=== PATIENT | male | born 1945 | race Caucasian/White ===

== ENCOUNTER 2019-10-22 08:58 | Day surgery (SDC) | payer MEDICARE ==
[~2019-10-22] VITALS: Ht 177.8 cm; Wt 95.5 kg
[2019-10-22] VITALS (8 sets, daily range): BP systolic 104–118; BP diastolic 68–74
[2019-10-22] MEDS ORDERED: MIDAZolam 5mg/ml 2ml vial IV ONE (09:30)
[2019-10-22] MEDS ORDERED: fentaNYL/PF 50MCG/1 ML 2ML syringe IV ONE (09:30)
[2019-10-22] MEDS ORDERED: atropine 0.1mg/ml 10ml syringe IV ONE (09:30)
[2019-10-22 09:44] LABS: BASOPHILS # (AUTO) 0.1 X10'3 (0-0.2); BASOPHILS % (AUTO) 1.4 % (0-1); EOSINOPHILS # (AUTO) 0.1 X10'3 (0-0.9); EOSINOPHILS % (AUTO) 1.9 % (0-6); HEMOGLOBIN 15.6 g/dl (14.0-17.9); LYMPHOCYTES # (AUTO) 1.9 X10'3 (1.1-4.8); LYMPHOCYTES % (AUTO) 29.5 % (21-51); MEAN CORPUSCULAR HEMOGLOBIN 29.9 PG (27.0-31.0); MEAN CORPUSCULAR HGB CONC 33.2 g/dL (33.0-36.5); MEAN CORPUSCULAR VOLUME 89.9 FL (78-98); MEAN PLATELET VOLUME 7.8 FL (7.4-10.4); MONOCYTES # (AUTO) 0.6 X10'3 (0-0.9); NEUTROPHILS # (AUTO) 3.8 X10'3 (1.8-7.7); NEUTROPHILS % (AUTO) 58.2 % (42-75); PLATELET COUNT 252 X10'3 (140-440); RED BLOOD COUNT 5.22 X10'6 (4.70-6.10); WHITE BLOOD COUNT 6.5 X10'3 (4.5-11.0)
[2019-10-22 09:50] LABS: ANION GAP 5 (8-16); BLOOD UREA NITROGEN 19 MG/DL (7-18); BUN/CREATININE RATIO 16.7 (5.4-32.0); CALCIUM 8.6 MG/DL (8.5-10.1); CHLORIDE 106 MMOL/L (99-107); CREATININE 1.14 MG/DL (0.60-1.10); GLUCOSE 97 MG/DL (70-104); MAGNESIUM 2.1 MG/DL (1.5-2.4); SODIUM 140 MMOL/L (135-145); TOTAL CARBON DIOXIDE 29.2 MMOL/L (24-32); eGFR 62 ML/MIN
[2019-10-22] MEDS ORDERED: EVOL140P3 (09:54)
[2019-10-22] MEDS ORDERED: FLO0.4C PO (09:54)
[2019-10-22] MEDS ORDERED: FURO-150 PO (09:54)
[2019-10-22] MEDS ORDERED: CLOP75TA33 PO (09:54)
[2019-10-22] MEDS ORDERED: POTA10TA10 PO (09:54)
[2019-10-22] MEDS ORDERED: BIMA2.5D OP (09:54)
[2019-10-22] MEDS ORDERED: RIVA20TA PO (09:54)
== END 2019-10-22 11:55 | disposition home or self-care (01) ==
LOC: SSTAY O 08:58
PROVIDERS: ATTEND Internal Medicine Cardiovascular Disease
DX: I48.0 Paroxysmal atrial fibrillation (principal); I25.118 Atherosclerotic heart disease of native coronary artery with other forms of angina pectoris; I11.0 Hypertensive heart disease with heart failure; I50.9 Heart failure, unspecified; E78.5 Hyperlipidemia, unspecified; H40.9 Unspecified glaucoma; Z79.899 Other long term (current) drug therapy; Z98.890 Other specified postprocedural states; Z79.01 Long term (current) use of anticoagulants; Z95.5 Presence of coronary angioplasty implant and graft; Z88.8 Allergy status to other drugs, medicaments and biological substances
CPT/HCPCS: 36415; 80048; 83735; 85025; 85610; 92960; 93005; J0461; J2250; J3010

== ENCOUNTER 2020-08-25 09:25 | Day surgery (SDC) | payer MEDICARE ==
[2020-08-25] VITALS (12 sets, daily range): BP systolic 110–173; BP diastolic 65–100
[~2020-08-25] VITALS: Ht 180.3 cm; Wt 96.9 kg
[~2020-08-25 09:25] MED LIST: BIMA2.5D OP; CLOP75TA33 PO; EVOL140P3; FLO0.4C PO; FURO-150 PO; POTA10TA10 PO; RIVA20TA PO
[2020-08-25] MEDS ORDERED: normal saline 1000ml 1,000 ML IV SCH (09:50)
[2020-08-25] MEDS ORDERED: MIDAZolam 1mg/ml 10ml vial IV ONE (09:50)
[2020-08-25] MEDS ORDERED: fentaNYL/PF 50MCG/1 ML 2ML syringe IV ONE (09:50)
[2020-08-25] MEDS ORDERED: DOFE250C (10:03)
[2020-08-25] MEDS ORDERED: FINA5TAB11 PO (10:03)
[2020-08-25 10:15] LABS: BASOPHILS % (AUTO) 0.7 % (0-1); EOSINOPHILS # (AUTO) 0.1 X10'3 (0-0.9); EOSINOPHILS % (AUTO) 2.7 % (0-6); HEMATOCRIT 44.8 % (42.0-52.0); HEMOGLOBIN 15.3 g/dl (14.0-17.9); LYMPHOCYTES # (AUTO) 1.6 X10'3 (1.1-4.8); LYMPHOCYTES % (AUTO) 30.5 % (21-51); MEAN CORPUSCULAR HEMOGLOBIN 30.9 PG (27.0-31.0); MEAN CORPUSCULAR HGB CONC 34.2 g/dL (33.0-36.5); MEAN CORPUSCULAR VOLUME 90.5 FL (78-98); MEAN PLATELET VOLUME 7.6 FL (7.4-10.4); MONOCYTES # (AUTO) 0.5 X10'3 (0-0.9); MONOCYTES % (AUTO) 9.7 % (2-12); NEUTROPHILS % (AUTO) 56.4 % (42-75); PLATELET COUNT 243 X10'3 (140-440); RED BLOOD COUNT 4.95 X10'6 (4.70-6.10); RED CELL DISTRIBUTION WIDTH 13.3 % (11.5-14.5); WHITE BLOOD COUNT 5.3 X10'3 (4.5-11.0)
[2020-08-25 10:25] LABS: ALBUMIN 3.8 G/DL (3.4-5.0); ANION GAP 7 (8-16); BLOOD UREA NITROGEN 15 MG/DL (7-18); BUN/CREATININE RATIO 14.4 (5.4-32.0); CALCIUM 9.2 MG/DL (8.5-10.1); CHLORIDE 107 MMOL/L (99-107); CREATININE 1.04 MG/DL (0.60-1.10); GLUCOSE 94 MG/DL (70-104); MAGNESIUM 2.3 MG/DL (1.5-2.4); POTASSIUM 4.2 MMOL/L (3.5-5.1); SODIUM 142 MMOL/L (135-145); TOTAL CARBON DIOXIDE 27.6 MMOL/L (24-32); eGFR 69 ML/MIN
== END 2020-08-25 12:50 | disposition home or self-care (01) ==
LOC: SSTAY O 09:25
PROVIDERS: ATTEND Internal Medicine Cardiovascular Disease
DX: I48.0 Paroxysmal atrial fibrillation (principal); E78.5 Hyperlipidemia, unspecified; I25.10 Atherosclerotic heart disease of native coronary artery without angina pectoris; I25.2 Old myocardial infarction; I11.0 Hypertensive heart disease with heart failure; I50.9 Heart failure, unspecified; H40.9 Unspecified glaucoma; Z95.5 Presence of coronary angioplasty implant and graft; Z98.890 Other specified postprocedural states; Z72.89 Other problems related to lifestyle; Z88.8 Allergy status to other drugs, medicaments and biological substances; Z82.49 Family history of ischemic heart disease and other diseases of the circulatory system
CPT/HCPCS: 36415; 80048; 83735; 85025; 85610; 92960; 93005; 94799; J2250; J3010; J7030

== ENCOUNTER 2020-12-18 10:33 | Day surgery (SDC) | payer MEDICARE ==
[~2020-12-18] VITALS: Ht 188 cm; Wt 97.2 kg
[2020-12-18] VITALS (10 sets, daily range): BP systolic 117–161; BP diastolic 65–101
[~2020-12-18 10:33] MED LIST changes: -CLOP75TA33 PO; +DOFE250C; +FINA5TAB11 PO
[2020-12-18] MEDS ORDERED: fentaNYL/PF 50MCG/1 ML 2ML syringe IV ONE (11:05)
[2020-12-18] MEDS ORDERED: MIDAZolam 1mg/ml 10ml vial IV ONE (11:05)
[2020-12-18] MEDS ORDERED: normal saline 1000ml 1,000 ML IV SCH (11:05)
[2020-12-18] MEDS ORDERED: TIMO2.5D4 EACHEYE (11:13)
[2020-12-18] MEDS ORDERED: MULT-1085 PO (11:13)
[2020-12-18] MEDS ORDERED: LANS30CA37 PO (11:13)
[2020-12-18 11:31] LABS: BASOPHILS # (AUTO) 0.1 X10'3 (0-0.2); EOSINOPHILS # (AUTO) 0.1 X10'3 (0-0.9); EOSINOPHILS % (AUTO) 2.8 % (0-6); HEMATOCRIT 45.9 % (42.0-52.0); HEMOGLOBIN 15.2 g/dl (14.0-17.9); LYMPHOCYTES # (AUTO) 1.5 X10'3 (1.1-4.8); LYMPHOCYTES % (AUTO) 27.9 % (21-51); MEAN CORPUSCULAR HEMOGLOBIN 29.4 PG (27.0-31.0); MEAN CORPUSCULAR HGB CONC 33.1 g/dL (33.0-36.5); MEAN CORPUSCULAR VOLUME 88.9 FL (78-98); MEAN PLATELET VOLUME 7.9 FL (7.4-10.4); MONOCYTES # (AUTO) 0.5 X10'3 (0-0.9); MONOCYTES % (AUTO) 8.6 % (2-12); NEUTROPHILS # (AUTO) 3.2 X10'3 (1.8-7.7); NEUTROPHILS % (AUTO) 59.7 % (42-75); PLATELET COUNT 249 X10'3 (140-440); RED BLOOD COUNT 5.16 X10'6 (4.70-6.10); RED CELL DISTRIBUTION WIDTH 13.8 % (11.5-14.5); WHITE BLOOD COUNT 5.3 X10'3 (4.5-11.0)
[2020-12-18 11:41] LABS: ANION GAP 9 (8-16); BLOOD UREA NITROGEN 15 MG/DL (7-18); BUN/CREATININE RATIO 15.6 (5.4-32.0); CALCIUM 9.3 MG/DL (8.5-10.1); CHLORIDE 104 MMOL/L (99-107); CREATININE 0.96 MG/DL (0.60-1.10); GLUCOSE 94 MG/DL (70-104); MAGNESIUM 2.2 MG/DL (1.5-2.4); SODIUM 140 MMOL/L (135-145); TOTAL CARBON DIOXIDE 27.4 MMOL/L (24-32); eGFR 76 ML/MIN
== END 2020-12-18 15:00 | disposition home or self-care (01) ==
LOC: SSTAY O 10:33
PROVIDERS: ATTEND Internal Medicine Cardiovascular Disease
DX: I48.0 Paroxysmal atrial fibrillation (principal); I48.4 Atypical atrial flutter; I11.0 Hypertensive heart disease with heart failure; I50.9 Heart failure, unspecified; I25.118 Atherosclerotic heart disease of native coronary artery with other forms of angina pectoris; I25.2 Old myocardial infarction; E78.5 Hyperlipidemia, unspecified; H40.9 Unspecified glaucoma; Z95.5 Presence of coronary angioplasty implant and graft; Z79.899 Other long term (current) drug therapy; Z88.8 Allergy status to other drugs, medicaments and biological substances; Z88.5 Allergy status to narcotic agent
CPT/HCPCS: 36415; 80048; 83735; 85025; 85610; 92960; 93005; J2250; J3010; J7030

== ENCOUNTER 2021-06-18 06:41 | Day surgery (SDC) | payer MEDICARE ==
[2021-06-18] VITALS (19 sets, daily range): BP systolic 98–159; BP diastolic 61–108
[~2021-06-18] VITALS: Ht 180.3 cm; Wt 98.1 kg
[~2021-06-18 06:41] MED LIST changes: -FURO-150 PO; +LANS30CA37 PO; +MULT-1085 PO; -POTA10TA10 PO; +TIMO2.5D4 EACHEYE
[2021-06-18] MEDS ORDERED: fentaNYL/PF 50MCG/1 ML 2ML syringe IV ONE (07:10)
[2021-06-18] MEDS ORDERED: normal saline 1000ml 1,000 ML IV SCH (07:10)
[2021-06-18] MEDS ORDERED: MIDAZolam 1mg/ml 10ml vial IV ONE (07:10)
[2021-06-18 07:57] LABS: EOSINOPHILS # (AUTO) 0.1 X10'3 (0-0.9); EOSINOPHILS % (AUTO) 2.4 % (0-6); HEMATOCRIT 43.9 % (42.0-52.0); HEMOGLOBIN 14.7 g/dl (14.0-17.9); LYMPHOCYTES # (AUTO) 1.2 X10'3 (1.1-4.8); LYMPHOCYTES % (AUTO) 25.8 % (21-51); MEAN CORPUSCULAR HEMOGLOBIN 30.2 PG (27.0-31.0); MEAN CORPUSCULAR HGB CONC 33.4 g/dL (33.0-36.5); MEAN CORPUSCULAR VOLUME 90.5 FL (78-98); MEAN PLATELET VOLUME 8.5 FL (7.4-10.4); MONOCYTES # (AUTO) 0.5 X10'3 (0-0.9); MONOCYTES % (AUTO) 10.1 % (2-12); NEUTROPHILS # (AUTO) 2.9 X10'3 (1.8-7.7); NEUTROPHILS % (AUTO) 60.7 % (42-75); PLATELET COUNT 208 X10'3 (140-440); RED BLOOD COUNT 4.86 X10'6 (4.70-6.10); RED CELL DISTRIBUTION WIDTH 13.9 % (11.5-14.5); WHITE BLOOD COUNT 4.8 X10'3 (4.5-11.0)
[2021-06-18 08:11] LABS: ALBUMIN 3.6 G/DL (3.4-5.0); ANION GAP 6 (8-16); BLOOD UREA NITROGEN 15 MG/DL (7-18); CALCIUM 8.8 MG/DL (8.5-10.1); CHLORIDE 106 MMOL/L (99-107); GLUCOSE 98 MG/DL (70-104); MAGNESIUM 2.4 MG/DL (1.5-2.4); POTASSIUM 3.8 MMOL/L (3.5-5.1); SODIUM 139 MMOL/L (135-145); TOTAL CARBON DIOXIDE 26.8 MMOL/L (24-32); eGFR 72 ML/MIN
[2021-06-18] MEDS ORDERED: flecainide 50mg tablet PO ONE (09:20)
== END 2021-06-18 11:30 | disposition home or self-care (01) ==
LOC: SSTAY O 06:41
PROVIDERS: ATTEND Internal Medicine Cardiovascular Disease
DX: I48.4 Atypical atrial flutter (principal); I48.0 Paroxysmal atrial fibrillation; I11.0 Hypertensive heart disease with heart failure; I50.9 Heart failure, unspecified; I25.118 Atherosclerotic heart disease of native coronary artery with other forms of angina pectoris; E78.5 Hyperlipidemia, unspecified; H40.9 Unspecified glaucoma; Z98.890 Other specified postprocedural states; Z72.89 Other problems related to lifestyle; Z88.8 Allergy status to other drugs, medicaments and biological substances; Z79.899 Other long term (current) drug therapy
CPT/HCPCS: 36415; 80048; 83735; 85025; 85610; 92960; 93005; 94799; J2250; J3010; J7030

== ENCOUNTER 2022-01-25 06:36 | Day surgery (SDC) | payer MEDICARE ==
[2022-01-25] VITALS (7 sets, daily range): BP systolic 107–167; BP diastolic 61–102
[~2022-01-25] VITALS: Ht 180.3 cm; Wt 99.3 kg
[~2022-01-25 06:36] MED LIST changes: -DOFE250C; -FINA5TAB11 PO; -LANS30CA37 PO; -MULT-1085 PO
[2022-01-25] MEDS ORDERED: normal saline 1000ml 1,000 ML IV SCH (07:05)
[2022-01-25] MEDS ORDERED: fentaNYL/PF 50MCG/1 ML 2ML syringe IV ONE (07:05)
[2022-01-25] MEDS ORDERED: MIDAZolam 1mg/ml 10ml vial IV ONE (07:05)
[2022-01-25] MEDS ORDERED: FLEC50TA PO (07:09)
[2022-01-25] MEDS ORDERED: FINA1TAB17 PO (07:09)
[2022-01-25] MEDS ORDERED: APIX5TAB3 PO (07:09)
[2022-01-25 07:34] LABS: EOSINOPHILS # (AUTO) 0.1 X10'3 (0-0.9); EOSINOPHILS % (AUTO) 2.4 % (0-6); HEMATOCRIT 41.9 % (42.0-52.0); HEMOGLOBIN 14.5 g/dl (14.0-17.9); LYMPHOCYTES # (AUTO) 1.3 X10'3 (1.1-4.8); LYMPHOCYTES % (AUTO) 26.9 % (21-51); MEAN CORPUSCULAR HEMOGLOBIN 30.7 PG (27.0-31.0); MEAN CORPUSCULAR HGB CONC 34.6 g/dL (33.0-36.5); MEAN CORPUSCULAR VOLUME 88.7 FL (78-98); MONOCYTES # (AUTO) 0.5 X10'3 (0-0.9); MONOCYTES % (AUTO) 9.5 % (2-12); NEUTROPHILS # (AUTO) 2.9 X10'3 (1.8-7.7); NEUTROPHILS % (AUTO) 60.2 % (42-75); PLATELET COUNT 209 X10'3 (140-440); RED BLOOD COUNT 4.73 X10'6 (4.70-6.10); RED CELL DISTRIBUTION WIDTH 13.7 % (11.5-14.5); WHITE BLOOD COUNT 4.9 X10'3 (4.5-11.0)
[2022-01-25 07:41] LABS: ALBUMIN 3.7 G/DL (3.4-5.0); ANION GAP 8 (8-16); BLOOD UREA NITROGEN 17 MG/DL (7-18); BUN/CREATININE RATIO 16.5 (5.4-32.0); CALCIUM 8.6 MG/DL (8.5-10.1); CHLORIDE 105 MMOL/L (99-107); CREATININE 1.03 MG/DL (0.60-1.10); GLUCOSE 100 MG/DL (70-104); MAGNESIUM 2.1 MG/DL (1.5-2.4); SODIUM 140 MMOL/L (135-145); TOTAL CARBON DIOXIDE 26.9 MMOL/L (24-32); eGFR 70 ML/MIN
== END 2022-01-25 14:33 | disposition home or self-care (01) ==
LOC: SSTAY O 06:36
PROVIDERS: ATTEND Internal Medicine Cardiovascular Disease
DX: I48.0 Paroxysmal atrial fibrillation (principal); I48.4 Atypical atrial flutter; I25.118 Atherosclerotic heart disease of native coronary artery with other forms of angina pectoris; E78.5 Hyperlipidemia, unspecified; I10 Essential (primary) hypertension; H40.9 Unspecified glaucoma; I25.2 Old myocardial infarction; Z95.5 Presence of coronary angioplasty implant and graft; Z88.8 Allergy status to other drugs, medicaments and biological substances; Z79.899 Other long term (current) drug therapy; Z79.01 Long term (current) use of anticoagulants
CPT/HCPCS: 36415; 80048; 83735; 85025; 85610; 92960; 93005; J2250; J3010; J7030

== ENCOUNTER 2022-11-17 18:14 | Emergency (ER) | payer MEDICARE ==
[~2022-11-17] VITALS: Ht 177.8 cm; Wt 93.2 kg
[~2022-11-17 18:14] MED LIST changes: +APIX5TAB3 PO; +FINA1TAB17 PO; +FLEC50TA PO; -RIVA20TA PO
[2022-11-17 18:45] VITALS: BP 130/88
[2022-11-17] MEDS ORDERED: predniSONE 20 mg tablet PO ONE (20:05)
[2022-11-17] MEDS ORDERED: gabapentin 100mg capsule PO ONE (20:05)
[2022-11-17] MEDS ORDERED: PRED20TA PO (20:09)
[2022-11-17] MEDS ORDERED: GABA-530 PO (20:09)
== END 2022-11-17 20:32 | disposition home or self-care (01) ==
LOC: ER 18:16
DX: G62.9 Polyneuropathy, unspecified (principal); M79.604 Pain in right leg; M79.605 Pain in left leg; M79.602 Pain in left arm; B02.9 Zoster without complications; H54.3 Unqualified visual loss, both eyes; Z88.8 Allergy status to other drugs, medicaments and biological substances; Z88.1 Allergy status to other antibiotic agents; Z79.899 Other long term (current) drug therapy
CPT/HCPCS: 99283; J7512

== ENCOUNTER 2023-01-10 06:43 | Day surgery (SDC) | payer MEDICARE ==
[~2023-01-10] VITALS: Ht 177.8 cm; Wt 96.7 kg
[~2023-01-10 06:43] MED LIST changes: +GABA-530 PO
[2023-01-10] MEDS ORDERED: diphenhydrAMINE 25mg capsule PO PRN (07:05)
[2023-01-10 07:12] VITALS: BP 143/89
[2023-01-10 07:56] LABS: BASOPHILS % (AUTO) 1.1 % (0-1); EOSINOPHILS # (AUTO) 0.1 X10'3 (0-0.9); EOSINOPHILS % (AUTO) 3.5 % (0-6); HEMATOCRIT 47.8 % (42.0-52.0); HEMOGLOBIN 15.8 g/dl (14.0-17.9); LYMPHOCYTES % (AUTO) 23.7 % (21-51); MEAN CORPUSCULAR HGB CONC 32.9 g/dL (33.0-36.5); MEAN CORPUSCULAR VOLUME 91.2 FL (78-98); MEAN PLATELET VOLUME 8.2 FL (7.4-10.4); MONOCYTES # (AUTO) 0.4 X10'3 (0-0.9); MONOCYTES % (AUTO) 10.7 % (2-12); NEUTROPHILS # (AUTO) 2.5 X10'3 (1.8-7.7); PLATELET COUNT 217 X10'3 (140-440); RED BLOOD COUNT 5.25 X10'6 (4.70-6.10); WHITE BLOOD COUNT 4.1 X10'3 (4.5-11.0)
[2023-01-10 07:57] LABS: ALBUMIN 4.3 G/DL (3.4-5.0); ANION GAP 10 (8-16); BLOOD UREA NITROGEN 17 MG/DL (7-18); BUN/CREATININE RATIO 15.7 (10.0-20.0); CALCIUM 9.2 MG/DL (8.5-10.1); CHLORIDE 103 MMOL/L (99-107); CREATININE 1.08 MG/DL (0.60-1.10); GLUCOSE 99 MG/DL (70-104); MAGNESIUM 2.2 MG/DL (1.5-2.4); POTASSIUM 4.1 MMOL/L (3.5-5.1); SODIUM 141 MMOL/L (135-145); TOTAL CARBON DIOXIDE 27.8 MMOL/L (24-32); eGFR 66 ML/MIN
[2023-01-10] MEDS ORDERED: midazolam 1 mg/ML 2ml injection ONE ×2 (08:46→09:36)
[2023-01-10] MEDS ORDERED: verapamil 2.5 mg/ml inj IV ONE (08:46)
[2023-01-10] MEDS ORDERED: nitroGLYCERIN-Tridil 50MG/D5W 0 ML IV ONE (08:46)
[2023-01-10] MEDS ORDERED: fentaNYL/PF 50MCG/1 ML 2ML syringe ONE (08:46)
[2023-01-10] MEDS ORDERED: heparin 1,000unit/ml 10ml vial 10 ML ONE (08:47)
[2023-01-10] MEDS ORDERED: iohexol 350 MG/ML 50ML vial IV ONE (08:47)
[2023-01-10] MEDS ORDERED: iohexol 350MG/ML 100ml bottle IV ONE (08:47)
[2023-01-10] MEDS ORDERED: LIDOcaine 1% (10mg/ml) 2ml vial ONE (08:47)
[2023-01-10] MEDS ORDERED: LIDOcaine 1% 30ml preserv. free vial ONE (09:17)
[2023-01-10 10:31] VITALS: BP 133/79
[2023-01-10] MEDS ORDERED: HYDROcodone/acetaminophen 5mg/325mg tablet PO PRN (10:50)
[2023-01-10] MEDS ORDERED: normal saline 1000ml 1,000 ML IV SCH (10:50)
[2023-01-10] MEDS ORDERED: ondansetron/PF 4mg/2ml inj IV PRN (10:50)
[2023-01-10] MEDS ORDERED: proCHLORperazine 10 MG/2 ml inj IV PRN (10:50)
[2023-01-10] MEDS ORDERED: HYDROcodone/acetaminophen 10/325mg tab PO PRN (10:50)
== END 2023-01-10 13:30 | disposition home or self-care (01) ==
LOC: SSTAY O 06:43
PROVIDERS: ATTEND Internal Medicine Cardiovascular Disease
DX: R94.39 Abnormal result of other cardiovascular function study (principal); I25.118 Atherosclerotic heart disease of native coronary artery with other forms of angina pectoris; I48.0 Paroxysmal atrial fibrillation; I10 Essential (primary) hypertension; E78.5 Hyperlipidemia, unspecified; K21.9 Gastro-esophageal reflux disease without esophagitis; Z98.890 Other specified postprocedural states; Z79.899 Other long term (current) drug therapy; I27.20 Pulmonary hypertension, unspecified; Z88.8 Allergy status to other drugs, medicaments and biological substances
CPT/HCPCS: 36415; 80048; 83735; 85025; 85610; 93005; 93460; 99152; 99153; C1760; C1894; J1644; J2250; J3010; J3490; J7030; Q0163; Q9967; A6258; C1725; C1751

== ENCOUNTER 2023-10-10 06:19 | Day surgery (SDC) | payer MEDICARE ==
[~2023-10-10] VITALS: Ht 177.8 cm; Wt 93.2 kg
[~2023-10-10 06:19] MED LIST changes: -EVOL140P3; -FINA1TAB17 PO; -GABA-530 PO; +cefazolin 2gm/D5W 100mL 100 ML IV ONE; +vancomycin 1,500 MG in NS 300ml IV soln IV ONE
[2023-10-10] MEDS ORDERED: normal saline 1000ml 1,000 ML IV SCH (06:40)
[2023-10-10 06:43] VITALS: BP 143/82; PULSE 76; RESP 16; TEMP 97.7; O2SAT 96
[2023-10-10] MEDS ORDERED: BACI1CAP10 PO (06:57)
[2023-10-10 07:12] LABS: BASOPHILS # (AUTO) 0.1 X10'3 (0-0.2); BASOPHILS % (AUTO) 1.1 % (0-1); EOSINOPHILS # (AUTO) 0.1 X10'3 (0-0.9); EOSINOPHILS % (AUTO) 2.3 % (0-6); HEMATOCRIT 45.5 % (42.0-52.0); HEMOGLOBIN 15.1 g/dl (14.0-17.9); LYMPHOCYTES # (AUTO) 1.4 X10'3 (1.1-4.8); LYMPHOCYTES % (AUTO) 30.4 % (21-51); MEAN CORPUSCULAR HEMOGLOBIN 30.1 PG (27.0-31.0); MEAN CORPUSCULAR HGB CONC 33.2 g/dL (33.0-36.5); MEAN CORPUSCULAR VOLUME 90.8 FL (78-98); MEAN PLATELET VOLUME 8.5 FL (7.4-10.4); MONOCYTES # (AUTO) 0.4 X10'3 (0-0.9); MONOCYTES % (AUTO) 9.4 % (2-12); NEUTROPHILS # (AUTO) 2.7 X10'3 (1.8-7.7); NEUTROPHILS % (AUTO) 56.8 % (42-75); PLATELET COUNT 173 X10'3 (140-440); RED BLOOD COUNT 5.01 X10'6 (4.70-6.10); WHITE BLOOD COUNT 4.7 X10'3 (4.5-11.0)
[2023-10-10 07:27] LABS: PROTHROMBIN TIME 10.8 SECONDS (9.0-12.0)
[2023-10-10 07:30] VITALS: RESP 16; O2SAT 96
[2023-10-10 07:42] LABS: ALBUMIN 3.9 G/DL (3.4-5.0); ANION GAP 11 (8-16); BLOOD UREA NITROGEN 18 MG/DL (7-18); BUN/CREATININE RATIO 15.9 (10.0-20.0); CALCIUM 9.2 MG/DL (8.5-10.1); CHLORIDE 107 MMOL/L (99-107); CREATININE 1.13 MG/DL (0.60-1.10); GLUCOSE 97 MG/DL (70-104); MAGNESIUM 2.2 MG/DL (1.5-2.4); SODIUM 141 MMOL/L (135-145); TOTAL CARBON DIOXIDE 23.1 MMOL/L (24-32); eCRCL 54 ML/MIN; eGFR 62 ML/MIN
[2023-10-10] MEDS ORDERED: midazolam 1 mg/ML 2ml injection ONE ×3 (08:10→10:39)
[2023-10-10] MEDS ORDERED: vancomycin 1,000mg inj ONE (08:10)
[2023-10-10] MEDS ORDERED: LIDOcaine 1% W/epiNEPHrine 1:100,000 20ml vial ONE (08:10)
[2023-10-10] MEDS ORDERED: fentaNYL/PF 50MCG/1 ML 2ML syringe ONE ×2 (08:10→10:39)
[2023-10-10] MEDS ORDERED: iohexol 350 MG/ML 50ML vial IV ONE (08:13)
[2023-10-10] MEDS ORDERED: atropine 0.1mg/ml 10ml syringe ONE (09:55)
[2023-10-10 11:27] VITALS: BP 116/72; PULSE 60; RESP 16; O2SAT 94
[2023-10-10] MEDS ORDERED: flecainide 50mg tablet PO ONE (11:40)
[2023-10-10 11:57] VITALS: BP 126/82; PULSE 60; RESP 16; O2SAT 97
[2023-10-10 12:12] VITALS: BP 131/82; PULSE 58; RESP 16; O2SAT 96
[2023-10-10 12:27] VITALS: BP 109/70; PULSE 60; RESP 16; O2SAT 97
== END 2023-10-10 13:44 | disposition home or self-care (01) ==
LOC: SSTAY O 06:19
PROVIDERS: ATTEND Internal Medicine Cardiovascular Disease
DX: I49.5 Sick sinus syndrome (principal); I48.19 Other persistent atrial fibrillation; I42.8 Other cardiomyopathies; I25.118 Atherosclerotic heart disease of native coronary artery with other forms of angina pectoris; I48.4 Atypical atrial flutter; E78.5 Hyperlipidemia, unspecified; H40.9 Unspecified glaucoma; K21.9 Gastro-esophageal reflux disease without esophagitis; I11.0 Hypertensive heart disease with heart failure; I50.9 Heart failure, unspecified; I25.2 Old myocardial infarction; Z98.890 Other specified postprocedural states; Z88.8 Allergy status to other drugs, medicaments and biological substances; Z79.899 Other long term (current) drug therapy; Z82.49 Family history of ischemic heart disease and other diseases of the circulatory system
CPT/HCPCS: 33208; 36415; 71045; 80048; 83735; 85025; 85610; 92960; 93005; 99152; 99153; C1785; C1898; J2250; J3010; J3370; J3490; J7030; Q9967; A4565; A6258; J0461

== ENCOUNTER 2023-11-14 09:10 | Day surgery (SDC) | payer MEDICARE ==
[2023-11-14] VITALS (14 sets, daily range): BP systolic 88–148; BP diastolic 24–106; PULSE 65–90; RESP 13–20; TEMP 98.2; O2SAT 94–98
[~2023-11-14] VITALS: Ht 180.3 cm; Wt 96.3 kg
[~2023-11-14 09:10] MED LIST changes: +BACI1CAP10 PO; -FLEC50TA PO; -cefazolin 2gm/D5W 100mL 100 ML IV ONE; -vancomycin 1,500 MG in NS 300ml IV soln IV ONE
[2023-11-14] MEDS ORDERED: AMI200T PO (09:56)
[2023-11-14] MEDS ORDERED: ACET125T3 PO (09:56)
[2023-11-14] MEDS ORDERED: LATA2.5D14 (09:56)
[2023-11-14] MEDS ORDERED: MULT-1085 PO (09:56)
[2023-11-14 10:40] LABS: BASOPHILS % (AUTO) 0.9 % (0-1); EOSINOPHILS # (AUTO) 0.1 X10'3 (0-0.9); EOSINOPHILS % (AUTO) 2.5 % (0-6); LYMPHOCYTES # (AUTO) 1.2 X10'3 (1.1-4.8); LYMPHOCYTES % (AUTO) 24.5 % (21-51); MEAN CORPUSCULAR HEMOGLOBIN 29.7 PG (27.0-31.0); MEAN CORPUSCULAR HGB CONC 32.6 g/dL (33.0-36.5); MEAN CORPUSCULAR VOLUME 91.2 FL (78-98); MEAN PLATELET VOLUME 8.6 FL (7.4-10.4); MONOCYTES # (AUTO) 0.5 X10'3 (0-0.9); MONOCYTES % (AUTO) 10.1 % (2-12); NEUTROPHILS # (AUTO) 2.9 X10'3 (1.8-7.7); PLATELET COUNT 169 X10'3 (140-440); RED BLOOD COUNT 5.37 X10'6 (4.70-6.10); RED CELL DISTRIBUTION WIDTH 15.1 % (11.5-14.5); WHITE BLOOD COUNT 4.8 X10'3 (4.5-11.0)
[2023-11-14] MEDS: MIDAZolam 1mg/ml 10ml vial IV ONE (10:47)
[2023-11-14] MEDS: fentaNYL/PF 50MCG/1 ML 2ML syringe IV ONE (10:47)
[2023-11-14] MEDS: normal saline 1000ml 1,000 ML IV SCH (10:48)
[2023-11-14 12:18] LABS: ALBUMIN 4.5 G/DL (3.4-5.0); ANION GAP 11 (8-16); BLOOD UREA NITROGEN 16 MG/DL (7-18); BUN/CREATININE RATIO 14.7 (10.0-20.0); CALCIUM 9.4 MG/DL (8.5-10.1); CHLORIDE 109 MMOL/L (99-107); CREATININE 1.09 MG/DL (0.60-1.10); GLUCOSE 90 MG/DL (70-104); MAGNESIUM 2.2 MG/DL (1.5-2.4); POTASSIUM 4.2 MMOL/L (3.5-5.1); SODIUM 145 MMOL/L (135-145); TOTAL CARBON DIOXIDE 25.1 MMOL/L (24-32); eCRCL 58 ML/MIN; eGFR 65 ML/MIN
[2023-11-14 12:20] LABS: PROTHROMBIN TIME 11.2 SECONDS (9.0-12.0)
== END 2023-11-14 12:15 | disposition home or self-care (01) ==
LOC: SSTAY O 09:10
PROVIDERS: ATTEND Internal Medicine Cardiovascular Disease
DX: I48.0 Paroxysmal atrial fibrillation (principal); I25.10 Atherosclerotic heart disease of native coronary artery without angina pectoris; I25.2 Old myocardial infarction; Z79.899 Other long term (current) drug therapy; Z95.5 Presence of coronary angioplasty implant and graft
CPT/HCPCS: 36415; 80048; 83735; 85025; 85610; 92960; 93005; J2250; J3010; J7030; A4620